=== PATIENT | male | born 1980 | race American Indian/Alaskan Native ===

== ENCOUNTER 2018-02-12 21:02 | Emergency (ER) | payer OTHER ==
[2018-02-12 21:08] VITALS: TEMP 98
--- NOTE | 2018-02-12 21:57 | ED PDOC ---
HPI: Psych/Substance Abuse Time Seen by Provider: 02/12/18 21:28 Chief Complaint (Nursing): Psychiatric Evaluation Chief Complaint (Provider): anxiety History Per: Patient History/Exam Limitations: no limitations Onset/Duration Of Symptoms: Hrs Current Symptoms Are (Timing): Still Present Suicide/Self Injury Attempted (Context): None Modifying Factor(s): None Associated Symptoms: Anxiety, Paranoia. denies: Suicidal Thoughts, Suicidal Plan Additional Complaint(s): 37 y/o M with hx of seizures (has not required meds in almost 5 yrs), anxiety, depression, paranoia who presents with c/o anxiety attack after not being able to get into [facility] today. He states that he became panicked after not being able to get into the intermediate as he does not know anyone in the area. He ran out of his Xanax and took the last dose this morning. He has also run out of his Klonopin and has one more Ambien left. He had some SOB when ambulance arrived b/c he doesn't trust anyone but feels well now. Denies suicidal/homicidal ideations, suicidal plan, visual or auditory hallucinations. Denies hx of HTN, HL,CAD/OR, CVA/TIA. Past Medical History Reviewed: Historical Data, Nursing Documentation, Vital Signs Vital Signs: Last Vital Signs Temp 98 F 02/12/18 21:06 Pulse 109 H 02/12/18 21:06 Resp 18 02/12/18 21:06 BP 139/97 H 02/12/18 21:06 Pulse Ox 100 02/12/18 21:06 - Medical History PMH: Anxiety, Depression, Seizures - Surgical History Surgical History: No Surg Hx - Family History Family History: States: Unknown Family Hx - Living Arrangements Living Arrangements: Other (homeless) - Social History Current smoker - smoking cessation education provided: No Ex-Smoker (has not smoked in the last 12 months): No Alcohol: None Drugs: Denies - Allergies Allergies/Adverse Reactions: Allergies Allergy/AdvReac Type Severity Reaction Status Date / Time No Known Allergies Allergy Verified 02/12/18 21:06 Review of Systems ROS Statement: Except As Marked, All Systems Reviewed And Found Negative Constitutional: Negative for: Fever, Chills, Weakness Cardiovascular: Negative for: Chest Pain Respiratory: Negative for: Cough Gastrointestinal: Negative for: Nausea, Vomiting Musculoskeletal: Negative for: Neck Pain Neurological: Negative for: Weakness, Change in Speech, Confusion Psych: Positive for: Anxiety, Depression. Negative for: Suicidal ideation Physical Exam - Reviewed Nursing Documentation Reviewed: Yes Vital Signs Reviewed: Yes - Physical Exam Appears: Positive for: Well (patient crying during interview) Head Exam: Positive for: ATRAUMATIC Skin: Positive for: Normal Color Eye Exam: Positive for: Conjunctival injection (B/L) Neck: Positive for: Normal, Supple Cardiovascular/Chest: Positive for: Regular Rate, Rhythm Respiratory: Positive for: Normal Breath Sounds Gastrointestinal/Abdominal: Positive for: Normal Exam Rectal: Positive for: Deferred Lymphatic: Positive for: Normal Exam Neurologic/Psych: Positive for: Alert, Oriented, Mood/Affect (flat). Negative for: Facial Droop - ECG O2 Sat by Pulse Oximetry: 100 Medical Decision Making Medical Decision Making: Crisis evaluation Xanax 0.5mg PO x 1 Disposition - Clinical Impression Clinical Impression: Depression - Patient ED Disposition Is Patient to be Admitted: No Discussed With DrPan: Angeli Hutchinson Counseled Patient/Family Regarding: Diagnosis, Need For Followup - Disposition Referrals: [facility] [employer] [facility] [Outside] [facility] [Outside] Disposition: Routine/Home Disposition Time: 23:15 Condition: STABLE Additional Instructions: Return to ER if you feel like hurting yourself. Instructions: Depression, Adult (DC) Forms: [employer] (Polish) Print Language: [place]
[2018-02-13 00:18] VITALS: BP 131/79; PULSE 82; RESP 15; O2SAT 99
== END 2018-02-13 00:18 | disposition home or self-care (01) ==
LOC: H.ER 21:02
DX: F32.9 Major depressive disorder, single episode, unspecified (principal); F41.9 Anxiety disorder, unspecified; Z87.891 Personal history of nicotine dependence

== ENCOUNTER 2018-03-28 23:42 | Emergency (ER) | payer OTHER ==
--- NOTE | 2018-03-29 01:18 | ED PDOC ---
HPI: General Adult Time Seen by Provider: 03/29/18 00:15 Chief Complaint (Nursing): Anxiety Chief Complaint (Provider): Anxiety History Per: Patient History/Exam Limitations: no limitations Onset/Duration Of Symptoms: Hrs Current Symptoms Are (Timing): Still Present Additional Complaint(s): 37 year old male with a history of depression, anxiety and paranoia presents to the ED for an evaluation of anxiety. Also reports he feels depressed currently. Otherwise patient denies fever, shortness of breath, abdominal pain, vomiting, nausea, rash, SI/HI. PMD: clinic ([place], [place]) Past Medical History Reviewed: Historical Data, Nursing Documentation, Vital Signs Vital Signs: Last Vital Signs Temp 98.4 F 03/29/18 00:02 Pulse 85 03/29/18 00:02 Resp 17 03/29/18 00:02 BP 141/83 03/29/18 00:02 Pulse Ox 99 03/29/18 00:02 - Medical History PMH: Anxiety, Depression, Paranoia, Seizures Denies: Hepatitis, HIV, Sexually Transmitted Disease - Family History Family History: States: Unknown Family Hx - Social History Current smoker - smoking cessation education provided: Yes (Light Smoker < 10 Cigarettes Daily) Alcohol: None Drugs: Denies - Allergies Allergies/Adverse Reactions: Allergies Allergy/AdvReac Type Severity Reaction Status Date / Time No Known Allergies Allergy Verified 02/12/18 21:06 Review of Systems ROS Statement: Except As Marked, All Systems Reviewed And Found Negative Constitutional: Negative for: Fever, Chills Cardiovascular: Negative for: Chest Pain Respiratory: Negative for: Cough, Shortness of Breath Musculoskeletal: Negative for: Neck Pain Skin: Negative for: Rash Neurological: Negative for: Weakness, Numbness Psych: Positive for: Anxiety. Negative for: Suicidal ideation, Other (homicidal ideation ) Physical Exam - Reviewed Nursing Documentation Reviewed: Yes Vital Signs Reviewed: Yes - Physical Exam Appears: Positive for: Non-toxic, No Acute Distress Head Exam: Positive for: ATRAUMATIC, NORMAL INSPECTION, NORMOCEPHALIC Skin: Positive for: Normal Color, Warm, Dry Eye Exam: Positive for: EOMI, Normal appearance, PERRL ENT: Positive for: Normal ENT Inspection Neck: Positive for: Normal, Painless ROM, Supple. Negative for: Decreased ROM Cardiovascular/Chest: Positive for: Regular Rate, Rhythm. Negative for: Murmur Respiratory: Positive for: Normal Breath Sounds. Negative for: Decreased Breath Sounds, Wheezing, Respiratory Distress Gastrointestinal/Abdominal: Positive for: Normal Exam, Soft. Negative for: Tenderness Back: Positive for: Normal Inspection Extremity: Positive for: Normal ROM. Negative for: Tenderness, Pedal Edema, Deformity Neurologic/Psych: Positive for: Alert, Oriented (x3). Negative for: Motor/Sensory Deficits - Laboratory Results Result Diagrams: 03/29/18 02:57 03/29/18 02:57 - ECG O2 Sat by Pulse Oximetry: 99 (RA) Pulse Ox Interpretation: Normal Medical Decision Making Medical Decision Making: Time: 52 Initial Plan: Accucheck Reevaluation Patient refused accucheck. Patient is diagnosed with anxiety by Dr. Jarrell Upon provider reevaluation patient is feeling better, is medically stable, and requires no further treatment in the ED at this time. Patient will be discharged home. Counseling was provided and all questions were answered regarding diagnosis and need for follow up with doctor. There is agreement to discharge plan. Return if symptoms persist or worsen. Scribe Attestation: Documented by Olrando Abdul, acting as a scribe for Jude Mosley MD. Provider Scribe Attestation: All medical record entries made by the Scribe were at my direction and personally dictated by me. I have reviewed the chart and agree that the record accurately reflects my personal performance of the history, physical exam, medical decision making, and the department course for this patient. I have also personally directed, reviewed, and agree with the discharge instructions and disposition. Disposition - Clinical Impression Clinical Impression: Anxiety - Patient ED Disposition Is Patient to be Admitted: No Counseled Patient/Family Regarding: Studies Performed, Diagnosis, Need For Followup - Disposition Disposition: Routine/Home Disposition Time: 05:00 Condition: IMPROVED Additional Instructions: follow up with your primary doctor in 1-2 days return to the ED with any worsening or concerning symptoms Instructions: Anxiety, Adult (DC) Forms: [employer] (Estonian)
[2018-03-29 03:02] LABS: BASO % 0.3 % (0.0-2.0); EOS # 0.1 K/uL (0.0-0.7); EOS % 0.6 % (0.0-4.0); HEMOGLOBIN 13.4 g/dL (12.0-18.0); LYMPH % 16.3 % (20.0-40.0); MEAN CELL VOLUME 88.4 fl (80.0-94.0); MEAN CORPUSCULAR HEMOGLOBIN 27.8 pg (27.0-31.0); MEAN CORPUSCULAR HGB CONC 31.5 g/dL (33.0-37.0); MEAN PLATELET VOLUME 9.2 fl (7.2-11.7); MONO # 1.4 K/uL (0.0-0.8); MONO % 11.2 % (0.0-10.0); NEUT # 8.9 K/uL (1.8-7.0); NEUT % 71.6 % (50.0-75.0); RBC 4.83 Mil/uL (4.40-5.90); RED CELL DISTRIBUTION WIDTH 14.7 % (11.5-14.5); WHITE BLOOD COUNT 12.4 K/uL (4.8-10.8)
[2018-03-29 03:09] LABS: ALB/GLOB RATIO 1.3 (1.0-2.1); ALBUMIN 3.8 g/dL (3.5-5.0); ALT/SGPT 24 U/L (21-72); AST/SGOT 19 U/L (17-59); BLOOD UREA NITROGEN 9 mg/dl (9-20); CALCIUM 9.1 mg/dL (8.4-10.2); GFR NON-AFRICAN AMERICAN > 60
[2018-03-29 05:09] VITALS: BP 100/52; PULSE 79; RESP 18; TEMP 98.6
[2018-03-31 04:50] VITALS: O2SAT 99
== END 2018-03-29 05:25 | disposition home or self-care (01) ==
LOC: H.ER 23:42
DX: F41.9 Anxiety disorder, unspecified (principal); F17.210 Nicotine dependence, cigarettes, uncomplicated; Z86.59 Personal history of other mental and behavioral disorders

== ENCOUNTER 2018-05-24 08:01 | Emergency (ER) | payer OTHER ==
[2018-05-24 08:07] VITALS: RESP 18; TEMP 98.2; O2SAT 99
--- NOTE | 2018-05-24 10:05 | ED PDOC ---
HPI: Head Injury Time Seen by Provider: 05/24/18 08:30 Chief Complaint (Nursing): Trauma Chief Complaint (Provider): Trauma History Per: Patient History/Exam Limitations: no limitations Injury Occurred (Timing): Today @ (6:45am) Onset/Duration Of Symptoms: Hrs Patient States: Fell Striking Head Additional Complaint(s): 37 year old male presents to the ED for an evaluation of a laceration on his face onset 45 minutes prior to arrival. He states he was walking outside and tripped on concrete developing pain on the lfet side of face. Otherwise, he denies LOC, weakness or numbness in any extremity. states has mild headache, no dizziness. Patient does not take Aspirin or blood thinners. His teatanus is UTD. also ntoes has rib pain on the R side. PMD: no family provider Past Medical History Reviewed: Historical Data, Nursing Documentation, Vital Signs Vital Signs: Last Vital Signs Temp 98.2 F 05/24/18 08:06 Pulse 105 H 05/24/18 08:06 Resp 18 05/24/18 08:06 BP 136/82 05/24/18 08:06 Pulse Ox 99 05/24/18 08:06 - Medical History PMH: Anxiety, Depression, Paranoia, Seizures Denies: Hepatitis, HIV, Sexually Transmitted Disease - Surgical History Surgical History: No Surg Hx - Family History Family History: States: Unknown Family Hx - Social History Current smoker - smoking cessation education provided: Yes (smokes a pack every 5 to 6 days) - Home Medications Home Medications: Ambulatory Orders Medication Instructions Recorded Acetaminophen [Tylenol 325mg tab] 650 mg PO Q4H PRN #10 tab 05/24/18 Ibuprofen [Motrin] 600 mg PO Q6H PRN #6 tab 05/24/18 - Allergies Allergies/Adverse Reactions: Allergies Allergy/AdvReac Type Severity Reaction Status Date / Time No Known Allergies Allergy Verified 02/12/18 21:06 Review of Systems ROS Statement: Except As Marked, All Systems Reviewed And Found Negative Constitutional: Negative for: Fever, Chills Respiratory: Negative for: Shortness of Breath Gastrointestinal: Negative for: Vomiting, Diarrhea Neurological: Positive for: Other (abrasion on left side; no LOC). Negative for: Weakness, Numbness Psych: Negative for: Suicidal ideation Physical Exam - Reviewed Nursing Documentation Reviewed: Yes Vital Signs Reviewed: Yes - Physical Exam Appears: Positive for: Non-toxic, No Acute Distress Head Exam: Positive for: ATRAUMATIC, NORMOCEPHALIC. Negative for: NORMAL INSPECTION (abrasion and scratches on left forehead which were cleaned and covered w bacitracin by nurse) Skin: Positive for: Warm, Dry. Negative for: Normal Color (birthmark on the left eye that is not new; multiple scratches on left eye), Rash Eye Exam: Positive for: Normal appearance (in sclera of left eye there is a birthmark that is not new), EOMI, PERRL ENT: Positive for: Normal ENT Inspection Neck: Positive for: Normal, Painless ROM, Supple. Negative for: Decreased ROM Cardiovascular/Chest: Positive for: Regular Rate, Rhythm. Negative for: Murmur Respiratory: Positive for: Normal Breath Sounds. Negative for: Decreased Breath Sounds, Respiratory Distress Gastrointestinal/Abdominal: Positive for: Normal Exam, Soft Back: Positive for: Normal Inspection Extremity: Positive for: Normal ROM. 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 Negative for: Motor/Sensory Deficits, Aphasia, Facial Droop - ECG O2 Sat by Pulse Oximetry: 99 (RA) Pulse Ox Interpretation: Normal Medical Decision Making Medical Decision Making: Time: 855 Impression: head trauma sp fall r/o intracranial bleed Plan: --Head w/o contrast CT --Maxillofacial w/o contrast CT --Tylenol 650mg --Nursing communication as ordered --Reevaluation 1015 PROCEDURE: CT HEAD WITHOUT CONTRAST. HISTORY: Headache COMPARISON: Correlation made with concurrent CT scan maxillofacial skeleton. TECHNIQUE: Axial computed tomography images were obtained through the head/brain without intravenous contrast. Radiation dose: Total exam DLP = 825.87 mGy-cm. This CT exam was performed using one or more of the following dose reduction techniques: Automated exposure control, adjustment of the mA and/or kV according to patient size, and/or use of iterative reconstruction technique. FINDINGS: HEMORRHAGE: No acute parenchymal, subarachnoid or extra-axial hemorrhage. BRAIN: No mass effect or edema. No atrophy or chronic microvascular ischemic changes. VENTRICLES: No obstructive hydrocephalus. CALVARIUM: No acute calvarial fractures. Mild moderate left-sided pre maxillary soft tissue swelling which extends superiorly into the periorbital and lateral supraorbital/frontotemporal region seen on prior concurrent maxillofacial skeletal study is not appreciated on this exam due to slice placement.. Mild swelling extends medially over the glabella region and bridge of the nose.. Punctate densities within this subcutaneous tissues of the right superior parietal and left posterolateral parietal scalp PARANASAL SINUSES: Moderate mucosal thickening seen within the left maxillary antrum with questionable small fluid level.. There is mucosal thickening seen in the sphenoid sinus: moderate left chamber and mild right chamber. Subtotal opacification of the ethmoid air complex with extension of mucosal thickening into the inferior aspect of the frontal sinus. MASTOID AIR CELLS: Unremarkable as visualized. No inflammatory changes. OTHER FINDINGS: Orbits and contents grossly unremarkable. IMPRESSION: No acute intracranial hemorrhage. The [id number] mucoperiosteal inflammatory changes within the aforementioned paranasal sinuses as described. Left-sided facial soft tissue swelling seen to better advantage on concurrent CT scan maxillofacial skeleton 1027 PROCEDURE: CT MAXILLOFACIAL BONES WITHOUT CONTRAST HISTORY: sp fall onto left side of head and face COMPARISON: Comparison made with concurrent CT scan brain TECHNIQUE: Contiguous axial CT images of the maxillofacial bones were obtained. Coronal and sagittal reformats were generated. Radiation dose: Total exam DLP = 716.36 mGy-cm. This CT exam was performed using one or more of the following dose reduction techniques: Automated exposure control, adjustment of the mA and/or kV according to patient size, and/or use of iterative reconstruction technique. FINDINGS: NASAL BONES: Possible old fracture deformity right anterior nasal bones. ORBITS: Bony orbits intact. Globes intact and lenses appropriately located. There are no retrobulbar hemorrhages or collections. PARANASAL SINUSES/ MASTOIDS: There is subtotal opacification of the ethmoid air complex. Subtotal opacification left maxillary antrum with questionable small fluid level. Mucosal thickening present within the sphenoid sinus moderate on the left and minor on the right. Minimal mucosal thickening right maxillary sinus. MAXILLA: There is mild moderate left-sided pre maxillary soft tissue swelling which extends superiorly into the periorbital and lateral supraorbital/frontotemporal region... Swelling extends medially over the glabella region and bridge of the nose. Poor dentition with dental caries and a number of missing teeth noted. The note made of a rounded expansile cystic lesion right parasagittal maxilla surrounding the roof of the right maxillary incisor tooth. This may represent a radicular cyst MANDIBLE/ TEMPOROMANDIBULAR JOINTS: Unremarkable. SKULL BASE: Unremarkable. TEMPORAL BONES: Middle ears and mastoid grossly unremarkable. OTHER FINDINGS: None. IMPRESSION: Left-sided facial soft tissue swelling as described. There are no acute maxillofacial skeletal fractures however questionable chronic right-sided anterior nasal bone fracture.. Mucoperiosteal inflammatory changes within all the paranasal sinuses as detailed above. Poor dentition with dental caries and a number of missing teeth notedProbable radicular cyst surrounding the root of the right maxillary incisor teeth. Pt aware of all the CT results. 1159 --Ribs bilateral w/PA chest [RAD] 1354 PROCEDURE: Radiographs of the chest and bilateral ribs HISTORY: r rib pain sp fall COMPARISON: None available. TECHNIQUE: Frontal radiograph of the chest and multiple oblique radiographs of the bilateral ribs were obtained. FINDINGS: RIGHT RIBS: No fracture or focal lesion visualized. LEFT RIBS: No fracture or focal lesion visualized. LUNGS: Clear. PLEURA: No pneumothorax or pleural fluid. CARDIOVASCULAR: Normal cardiac size. No pulmonary vascular congestion. No aortic atherosclerotic calcification present OTHER FINDINGS: None. IMPRESSION: Unremarkable radiographs of the chest and bilateral ribs. No rib fracture. Patient will be discharged home. Counseling was provided and all questions were answered regarding diagnosis and need for follow up with PMD. referred pt to clinic. There is agreement to discharge plan. Return if symptoms persist or worsen. Patient insisted he wants Motrin and he doesnt want Tylenol 650mg. encouraged him to use tylenol rather than motrin as motrin can cause bleeding. Scribe Attestation: Documented by Orlando Abdul, acting as a scribe for Jude Mosley MD. Provider Scribe Attestation: All medical record entries made by the Scribe were at my direction and personally dictated by me. I have reviewed the chart and agree that the record accurately reflects my personal performance of the history, physical exam, medical decision making, and the department course for this patient. I have also personally directed, reviewed, and agree with the discharge instructions and disposition. Disposition - Clinical Impression Clinical Impression: Head trauma, Facial trauma - Patient ED Disposition Is Patient to be Admitted: No Counseled Patient/Family Regarding: Studies Performed, Diagnosis, Need For Followup - Disposition Referrals: [facility] [Outside] [facility] [Outside] Disposition: Routine/Home Disposition Time: 14:35 Condition: IMPROVED Additional Instructions: follow up with clinic in 1-2 days return to the ED with any worsening or concerning symptoms Prescriptions: Acetaminophen [Tylenol 325mg tab] 650 mg PO Q4H PRN #10 tab PRN Reason: Pain, Moderate (4-7) Ibuprofen [Motrin] 600 mg PO Q6H PRN #6 tab PRN Reason: Pain, Moderate (4-7) Instructions: Closed Head Injury Forms: [facility] (Upper Sorbian)
--- NOTE | 2018-05-24 10:33 | CT ---
Date of service: 05/24/2018 PROCEDURE: CT MAXILLOFACIAL BONES WITHOUT CONTRAST HISTORY: sp fall onto left side of head and face COMPARISON: Comparison made with concurrent CT scan brain TECHNIQUE: Contiguous axial CT images of the maxillofacial bones were obtained. Coronal and sagittal reformats were generated. Radiation dose: Total exam DLP = 716.36 mGy-cm. This CT exam was performed using one or more of the following dose reduction techniques: Automated exposure control, adjustment of the mA and/or kV according to patient size, and/or use of iterative reconstruction technique. FINDINGS: NASAL BONES: Possible old fracture deformity right anterior nasal bones. ORBITS: Bony orbits intact. Globes intact and lenses appropriately located. There are no retrobulbar hemorrhages or collections. PARANASAL SINUSES/ MASTOIDS: There is subtotal opacification of the ethmoid air complex. Subtotal opacification left maxillary antrum with questionable small fluid level. Mucosal thickening present within the sphenoid sinus moderate on the left and minor on the right. Minimal mucosal thickening right maxillary sinus. MAXILLA: There is mild moderate left-sided pre maxillary soft tissue swelling which extends superiorly into the periorbital and lateral supraorbital/frontotemporal region... Swelling extends medially over the glabella region and bridge of the nose. Poor dentition with dental caries and a number of missing teeth noted. The note made of a rounded expansile cystic lesion right parasagittal maxilla surrounding the roof of the right maxillary incisor tooth. This may represent a radicular cyst MANDIBLE/ TEMPOROMANDIBULAR JOINTS: Unremarkable. SKULL BASE: Unremarkable. TEMPORAL BONES: Middle ears and mastoid grossly unremarkable. OTHER FINDINGS: None. IMPRESSION: Left-sided facial soft tissue swelling as described. There are no acute maxillofacial skeletal fractures however questionable chronic right-sided anterior nasal bone fracture.. Mucoperiosteal inflammatory changes within all the paranasal sinuses as detailed above. Poor dentition with dental caries and a number of missing teeth notedProbable radicular cyst surrounding the root of the right maxillary incisor teeth.
--- NOTE | 2018-05-24 10:34 | CT ---
Date of service: 05/24/2018 PROCEDURE: CT HEAD WITHOUT CONTRAST. HISTORY: Headache COMPARISON: Correlation made with concurrent CT scan maxillofacial skeleton. TECHNIQUE: Axial computed tomography images were obtained through the head/brain without intravenous contrast. Radiation dose: Total exam DLP = 825.87 mGy-cm. This CT exam was performed using one or more of the following dose reduction techniques: Automated exposure control, adjustment of the mA and/or kV according to patient size, and/or use of iterative reconstruction technique. FINDINGS: HEMORRHAGE: No acute parenchymal, subarachnoid or extra-axial hemorrhage. BRAIN: No mass effect or edema. No atrophy or chronic microvascular ischemic changes. VENTRICLES: No obstructive hydrocephalus. CALVARIUM: No acute calvarial fractures. Mild moderate left-sided pre maxillary soft tissue swelling which extends superiorly into the periorbital and lateral supraorbital/frontotemporal region seen on prior concurrent maxillofacial skeletal study is not appreciated on this exam due to slice placement.. Mild swelling extends medially over the glabella region and bridge of the nose.. Punctate densities within this subcutaneous tissues of the right superior parietal and left posterolateral parietal scalp PARANASAL SINUSES: Moderate mucosal thickening seen within the left maxillary antrum with questionable small fluid level.. There is mucosal thickening seen in the sphenoid sinus: moderate left chamber and mild right chamber. Subtotal opacification of the ethmoid air complex with extension of mucosal thickening into the inferior aspect of the frontal sinus. MASTOID AIR CELLS: Unremarkable as visualized. No inflammatory changes. OTHER FINDINGS: Orbits and contents grossly unremarkable. IMPRESSION: No acute intracranial hemorrhage. The [id number] mucoperiosteal inflammatory changes within the aforementioned paranasal sinuses as described. Left-sided facial soft tissue swelling seen to better advantage on concurrent CT scan maxillofacial skeleton
[2018-05-24] MEDS ORDERED: Tdap Vaccine 0.5 ml Vial (10-64 yrs) IM ONE (11:23)
--- NOTE | 2018-05-24 13:58 | RAD ---
Date of service: 05/24/2018 PROCEDURE: Radiographs of the chest and bilateral ribs HISTORY: r rib pain sp fall COMPARISON: None available. TECHNIQUE: Frontal radiograph of the chest and multiple oblique radiographs of the bilateral ribs were obtained. FINDINGS: RIGHT RIBS: No fracture or focal lesion visualized. LEFT RIBS: No fracture or focal lesion visualized. LUNGS: Clear. PLEURA: No pneumothorax or pleural fluid. CARDIOVASCULAR: Normal cardiac size. No pulmonary vascular congestion. No aortic atherosclerotic calcification present OTHER FINDINGS: None. IMPRESSION: Unremarkable radiographs of the chest and bilateral ribs. No rib fracture.
[2018-05-24 16:06] VITALS: BP 138/90; PULSE 92
== END 2018-05-24 14:58 | disposition home or self-care (01) ==
LOC: H.ER 08:01
DX: S09.90XA Unspecified injury of head, initial encounter (principal); S00.81XA Abrasion of other part of head, initial encounter; R07.82 Intercostal pain; W19.XXXA Unspecified fall, initial encounter; Y92.480 Sidewalk as the place of occurrence of the external cause

== ENCOUNTER 2018-07-09 18:58 | Emergency (ER) | payer OTHER ==
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
[2018-07-09] MEDS ORDERED: Mag&Al/Simet/Diphen/Lido 237 ML KIT BU STA (22:14)
[2018-07-09 22:53] VITALS: BP 134/79; PULSE 82; RESP 15; TEMP 98.9; O2SAT 100
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
== END 2018-07-09 22:52 | disposition home or self-care (01) ==
LOC: H.ER 18:58
DX: S00.03XA Contusion of scalp, initial encounter (principal); Y04.0XXA Assault by unarmed brawl or fight, initial encounter; Y92.89 Other specified places as the place of occurrence of the external cause; F32.9 Major depressive disorder, single episode, unspecified; F41.9 Anxiety disorder, unspecified

== ENCOUNTER 2018-07-10 16:18 | Emergency (ER) | payer OTHER ==
[2018-07-10 16:26] VITALS: BP 124/77; PULSE 72; RESP 19; TEMP 98.5; O2SAT 100
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
== END 2018-07-10 17:54 | disposition home or self-care (01) ==
LOC: H.ER 16:18
DX: M25.562 Pain in left knee (principal); M25.561 Pain in right knee; Z86.59 Personal history of other mental and behavioral disorders; S09.90XA Unspecified injury of head, initial encounter; R51 Headache; Y04.0XXA Assault by unarmed brawl or fight, initial encounter

== ENCOUNTER 2018-08-07 02:06 | Emergency (ER) | payer OTHER ==
[2018-08-07] MEDS ORDERED: Amoxicillin-Clav 875-125 mg Tab PO STA (03:32)
[2018-08-07] MEDS ORDERED: Amoxicillin-Clav 875-125 mg Tab PO ONE (04:15)
--- NOTE | 2018-08-07 04:33 | ED PDOC ---
HPI: Dental Pain/Injury Time Seen by Provider: 08/07/18 03:23 Chief Complaint (Nursing): Dental Pain History Per: Patient History/Exam Limitations: no limitations Onset/Duration Of Symptoms: Days Additional Complaint(s): 37 yo M with psych history presents for evaluation of tooth pain and infection for 3 days. He reports he has a dentist in [place], has not called, but they are not open until Wednesday (2 days). he has not taken anything for the pain. He reports pain when chewing and sensitivity to cold drinks. Pt is also requesting seroquel and lorazepam. He reports he is prescribed them for his depression and anxiety and needs a dose now. he has an appointment with [facility] to get the prescriptions today at 11am. Pt denies fevers, chill, difficulty swallowing, drooling. PMd: Dr. christensen Past Medical History Reviewed: Historical Data, Nursing Documentation, Vital Signs Vital Signs: Last Vital Signs Temp 99.2 F 08/07/18 02:26 Pulse 96 H 08/07/18 02:26 Resp 18 08/07/18 02:26 BP 133/72 08/07/18 02:26 Pulse Ox 96 08/07/18 02:26 Primary Care Provider: Kristyn Christensen - Medical History PMH: Anxiety, Depression, Migraine, Paranoia, Seizures Denies: Hepatitis, HIV, Sexually Transmitted Disease - Family History Family History: States: Unknown Family Hx - Immunization History Hx Tetanus Toxoid Vaccination: No Hx Influenza Vaccination: No Hx Pneumococcal Vaccination: No - Home Medications Home Medications: Ambulatory Orders Medication Instructions Recorded Acetaminophen [Tylenol 325mg tab] 650 mg PO Q4H PRN #10 tab 05/24/18 Ibuprofen [Motrin] 600 mg PO Q6H PRN #6 tab 05/24/18 Chlorhexidine 0.12% [Peridex] 10 ml MM TID #1 bottle 07/09/18 Acetaminophen [Acetaminophen 8 650 mg PO Q8 PRN #21 tablet.er 07/10/18 Hour] Amoxicillin/Clavulanate [Augmentin 1 tab PO BID 10 Days #20 tab 08/07/18 875 MG-125 MG] Ibuprofen [Motrin Tab] 600 mg PO Q6 PRN #20 tab 08/07/18 - Allergies Allergies/Adverse Reactions: Allergies Allergy/AdvReac Type Severity Reaction Status Date / Time No Known Allergies Allergy Verified 07/09/18 19:10 Review of Systems Constitutional: Negative for: Fever ENT: Positive for: Mouth Pain. Negative for: Throat Pain, Throat Swelling Physical Exam - Reviewed Nursing Documentation Reviewed: Yes Vital Signs Reviewed: Yes - Physical Exam Comments: GENERAL APPEARANCE: Patient is awake, alert, oriented x 3, in mild obvious discomfort SKIN: Warm, dry; (-) cyanosis. ENMT: (-) sinus swelling or tenderness. poor dental hygiene (+) bottom left front tooth tenderness to percussion, (+)dental caries (+)mild gingival swelling. (-) masses (-) fluctuance. Pharynx: (-) tongue elevation, (-) exudate. Airway patent: (-) stridor. (-) Submandibular or submental neck swelling (-) pseudomembranes NECK: (-) tenderness, (-) crepitus. - ECG O2 Sat by Pulse Oximetry: 96 Medical Decision Making Medical Decision Makin initial eval - tooth infection -- Ibuprofen and Augmentin PO -- viscous lidocaine PO -- re eval Discussed with pt he does not need a dose of medication at this time, and he has an apppointment in a few hours to get RX 0430 on re eval pt is sleeping, easily arousable, pain improved, pt is stable for dc Discussed results, diagnosis, treatment, return precautions and f/u with pt who is understanding, in agreement and stable for dc 0530 RN tried to discharge pt who was sleeping, when woken up he reported continue pain I re evaluated pt and asking for more Ibuprofen, pt is not due for it, will give TYlneol PO then is stable for dc Disposition - Clinical Impression Clinical Impression: Dental caries, Dental sore - Patient ED Disposition Is Patient to be Admitted: No Counseled Patient/Family Regarding: Studies Performed, Diagnosis, Need For Followup, Rx Given - Disposition Referrals: your, dentist [Other] Disposition: Routine/Home Disposition Time: 04:32 Condition: IMPROVED Additional Instructions: Thank you for letting us take care of you today. The emergency medical care you received today was directed at your acute symptoms. If you were prescribed any medication, please fill it and take as directed. It may take several days for your symptoms to resolve. Return to the Emergency Department if your symptoms worsen, do not improve, or if you have any other problems. Please contact your doctor in 2 days for re-evaluation and follow up / or call one of the physicians/clinics you have been referred to that are listed on the Patient Visit Information form that is included in your discharge packet. Bring any paperwork you were given at discharge with you along with any medications you are taking to your follow up visit. Our treatment cannot replace ongoing medical care by a primary care provider (PCP) outside of the emergency department. Prescriptions: Amoxicillin/Clavulanate [Augmentin 875 MG-125 MG] 1 tab PO BID 10 Days #20 tab Ibuprofen [Motrin Tab] 600 mg PO Q6 PRN #20 tab PRN Reason: Pain, Moderate (4-7) Instructions: Tooth Decay, Adult, Dental Pain Print Language: KAZAKH - POA Present On Arrival: None
[2018-08-07 05:03] VITALS: TEMP 98.2
[2018-08-07 05:47] VITALS: O2SAT 96
[2018-08-07 07:34] VITALS: BP 101/55; PULSE 74; RESP 16
== END 2018-08-07 05:47 | disposition home or self-care (01) ==
LOC: H.ER 02:06
DX: K02.9 Dental caries, unspecified (principal)